=== PATIENT | female | born 1935 | race Two or more races ===

== ENCOUNTER 2024-08-19 03:47 | Inpatient (IN) | payer MEDICARE, OTHER ==
[~2024-08-19] VITALS: Ht 144.8 cm; Wt 52.6 kg
[2024-08-19] MEDS ORDERED: ACETAMINOPHEN ES 500 MG TABLET ONE (04:26)
[2024-08-19] MEDS: ACETAMINOPHEN ES 500 MG TABLET PO ONE (04:29)
[2024-08-19 04:47] LABS: BASOPHILS % (AUTO) 0.3 % (0.0-2.0); EOSINOPHILS # (AUTO) 0.1 K/uL (0.0-0.7); EOSINOPHILS % (AUTO) 0.6 % (0.0-6.0); HEMATOCRIT 34 % (33-45); HEMOGLOBIN 11.1 g/dL (11.5-14.8); LYMPHOCYTES % (AUTO) 7.6 % (20.0-44.0); MEAN CORPUSCULAR HEMOGLOBIN 27 PG (26.0-33.0); MEAN CORPUSCULAR HGB CONC 33 g/dl (31.0-36.0); MEAN CORPUSCULAR VOLUME 82 fL (82-100); MONOCYTES # (AUTO) 0.7 K/uL (0.1-1.30); MONOCYTES % (AUTO) 5.3 % (2.0-12.0); NEUTROPHILS # (AUTO) 11.5 K/uL (1.8-8.9); NEUTROPHILS % (AUTO) 86.2 % (43.0-81.0); PLATELET COUNT (AUTO) 198 K/uL (150-450); RED BLOOD CELL COUNT(AUTO) 4.12 MIL/uL (4.0-5.2); RED CELL DISTRIBUTION WIDTH 14.9 % (11.5-15.0); WHITE BLOOD COUNT (AUTO) 13.3 K/uL (4.3-11.0)
[2024-08-19 04:53] LABS: CALCIUM, SERUM 8.8 mg/dL (8.5-10.1); CREATININE 1.1 mg/dL (0.6-1.3); POTASSIUM 3.6 mmol/L (3.5-5.1)
[2024-08-19] MEDS ORDERED: oxyCODONE/APAP (5/325 MG) 1 UDTAB TABLET ONE (07:34)
[2024-08-19] MEDS: oxyCODONE/APAP (5/325 MG) 1 UDTAB TABLET PO ONE (07:41)
[2024-08-19] MEDS ORDERED: OMEP20CA15 PO (09:07)
[2024-08-19] MEDS ORDERED: NIFE-35 PO (09:07)
[2024-08-19] MEDS ORDERED: GLIM4TAB37 PO (09:07)
[2024-08-19] MEDS ORDERED: METO-357 PO (09:07)
[2024-08-19] MEDS ORDERED: BIMA2.5D5 EACHEYE (09:07)
[2024-08-19] MEDS ORDERED: METF-440 PO (09:07)
[2024-08-19] MEDS ORDERED: BRIM5DRO3 LEFTEYE (09:07)
[2024-08-19] MEDS ORDERED: BRIN10DR EACHEYE (09:07)
[2024-08-19] MEDS ORDERED: LORA-258 PO (09:07)
[2024-08-19] MEDS ORDERED: Z GUARD REMEDY 4 OZ OINT TP PRN (13:30)
[2024-08-19] MEDS ORDERED: MAG HYDROX/AL HYDROX/SIMETH 30 ML UDC PO PRN (13:30)
[2024-08-19] MEDS ORDERED: ONDANSETRON HCL/PF 4 MG/2 ML VIAL IVP PRN (13:30)
[2024-08-19] MEDS ORDERED: DEXTROSE 50%-WATER 50 ML DISP.SYRIN IV PRN (13:30)
[2024-08-19] MEDS ORDERED: ZOLPIDEM TARTRATE 5 MG TABLET PO PRN (13:30)
[2024-08-19] MEDS: HYDROCODONE/APAP 5/325MG TABLET PO PRN (13:57)
[2024-08-19] MEDS: ENOXAPARIN SODIUM 30 MG/0.3 ML DISP.SYRIN SQ SCH (14:39)
[2024-08-19 15:11] LABS: THYROID STIMULATING HORMONE 7.24 uIU/mL (0.358-3.74)
[2024-08-19] MEDS: INSULIN REGULAR, HUMAN 100 UNIT/ML 3 ML VIAL SQ PRN (18:10)
[2024-08-19] MEDS: BLOOD SUGAR DIAGNOSTIC 1 EACH STRIP IN SCH (18:11)
[2024-08-19 20:00] VITALS: BP 127/69; TEMP 98.8; O2SAT 96
[2024-08-19] MEDS: ACETAMINOPHEN 325 MG TABLET PO PRN (22:15)
[2024-08-20 07:16] LABS: BASOPHILS % (AUTO) 0.5 % (0.0-2.0); EOSINOPHILS % (AUTO) 0.8 % (0.0-6.0); HEMATOCRIT 28 % (33-45); HEMOGLOBIN 9.7 g/dL (11.5-14.8); LYMPHOCYTES # (AUTO) 0.9 K/uL (0.8-4.8); LYMPHOCYTES % (AUTO) 16.6 % (20.0-44.0); MEAN CORPUSCULAR HEMOGLOBIN 28 PG (26.0-33.0); MEAN CORPUSCULAR HGB CONC 34 g/dl (31.0-36.0); MEAN CORPUSCULAR VOLUME 82 fL (82-100); MONOCYTES # (AUTO) 0.5 K/uL (0.1-1.30); MONOCYTES % (AUTO) 8.8 % (2.0-12.0); NEUTROPHILS # (AUTO) 4.1 K/uL (1.8-8.9); NEUTROPHILS % (AUTO) 73.3 % (43.0-81.0); PLATELET COUNT (AUTO) 160 K/uL (150-450); RED BLOOD CELL COUNT(AUTO) 3.46 MIL/uL (4.0-5.2); RED CELL DISTRIBUTION WIDTH 15.1 % (11.5-15.0); WHITE BLOOD COUNT (AUTO) 5.6 K/uL (4.3-11.0)
[2024-08-20 07:33] LABS: CALCIUM, SERUM 8.1 mg/dL (8.5-10.1); CREATININE 0.9 mg/dL (0.6-1.3); MAGNESIUM 1.7 mg/dL (1.8-2.4); PHOSPHORUS 4.1 mg/dL (2.5-4.9); POTASSIUM 3.6 mmol/L (3.5-5.1)
[2024-08-20 08:00] VITALS: BP 131/67; TEMP 98.1; O2SAT 97
[2024-08-20] MEDS: PANTOPRAZOLE 40 MG TABLET.DR PO SCH (08:27)
[2024-08-20] MEDS: MAGNESIUM OXIDE 400 MG TABLET PO ONE (10:21)
[2024-08-20 16:00] VITALS: BP 145/73; TEMP 98.6; O2SAT 94
[2024-08-20 20:00] VITALS: BP 138/82; TEMP 97.9; O2SAT 95
[2024-08-21 00:52] VITALS: BP 138/82; TEMP 97.9; O2SAT 95
[2024-08-21 06:39] LABS: BASOPHILS % (AUTO) 0.7 % (0.0-2.0); EOSINOPHILS # (AUTO) 0.1 K/uL (0.0-0.7); EOSINOPHILS % (AUTO) 1.1 % (0.0-6.0); HEMATOCRIT 28 % (33-45); HEMOGLOBIN 9.6 g/dL (11.5-14.8); LYMPHOCYTES % (AUTO) 20.5 % (20.0-44.0); MEAN CORPUSCULAR HEMOGLOBIN 28 PG (26.0-33.0); MEAN CORPUSCULAR HGB CONC 34 g/dl (31.0-36.0); MEAN CORPUSCULAR VOLUME 81 fL (82-100); MONOCYTES # (AUTO) 0.6 K/uL (0.1-1.30); MONOCYTES % (AUTO) 11.3 % (2.0-12.0); NEUTROPHILS # (AUTO) 3.3 K/uL (1.8-8.9); NEUTROPHILS % (AUTO) 66.4 % (43.0-81.0); PLATELET COUNT (AUTO) 164 K/uL (150-450); RED BLOOD CELL COUNT(AUTO) 3.47 MIL/uL (4.0-5.2); RED CELL DISTRIBUTION WIDTH 14.7 % (11.5-15.0)
[2024-08-21 07:15] LABS: ALBUMIN 2.9 g/dL (3.4-5.0); BILIRUBIN,TOTAL 0.5 mg/dL (0.2-1.0); CALCIUM, SERUM 8.4 mg/dL (8.5-10.1); CREATININE 0.9 mg/dL (0.6-1.3); MAGNESIUM 1.9 mg/dL (1.8-2.4); PHOSPHORUS 3.7 mg/dL (2.5-4.9); POTASSIUM 3.5 mmol/L (3.5-5.1); TOTAL PROTEIN, SERUM 6.2 g/dL (6.4-8.2)
[2024-08-21 08:40] VITALS: BP 147/71; TEMP 98.1; O2SAT 96
[2024-08-21] MEDS: MAGNESIUM HYDROXIDE 30 ML UDC PO PRN (12:51)
[2024-08-21 16:00] VITALS: BP 139/66; TEMP 97.3; O2SAT 94
[2024-08-21 20:00] VITALS: BP 128/66; TEMP 98.2; O2SAT 96
[2024-08-21 21:00] VITALS: BP 128/75; TEMP 98; O2SAT 97
[2024-08-22 08:00] VITALS: BP 146/65; TEMP 98.8; O2SAT 96
[2024-08-22] MEDS: BISACODYL SUPP (10 MG) 10 MG/SUPP.RECT SUPP.RECT RC PRN (12:23)
== END 2024-08-22 15:20 | DRG 563 ==
LOC: ER 03:49 → MED 11:08
DX: S42.212A Unspecified displaced fracture of surgical neck of left humerus, initial encounter for closed fracture (principal); F03.90 Unspecified dementia, unspecified severity, without behavioral disturbance, psychotic disturbance, mood disturbance, and anxiety; I10 Essential (primary) hypertension; E11.9 Type 2 diabetes mellitus without complications; M81.0 Age-related osteoporosis without current pathological fracture; W10.8XXA Fall (on) (from) other stairs and steps, initial encounter; Y92.008 Other place in unspecified non-institutional (private) residence as the place of occurrence of the external cause; D72.829 Elevated white blood cell count, unspecified; D64.9 Anemia, unspecified; E03.9 Hypothyroidism, unspecified; R79.89 Other specified abnormal findings of blood chemistry
CPT/HCPCS: 36415; 70450-TC; 72125-TC; 73030-TC; 73200-TC; 73502; 80048-TC; 80053-TC; 80061-TC; 82962-TC; 83735-TC; 84100-TC; 84443-TC; 84484-TC; 85025-TC; 93307-TC; 97110-TC; 97116-TC; 97530-TC; 97535-TC; G0378; J1650; J1815

== ENCOUNTER 2024-12-04 22:34 | Emergency (ER) | payer MEDICARE, OTHER ==
[~2024-12-04] VITALS: Ht 157.5 cm; Wt 54.4 kg
[~2024-12-04 22:34] MED LIST: BIMA2.5D5 EACHEYE; BRIM5DRO3 LEFTEYE; BRIN10DR EACHEYE; GLIM4TAB37 PO; LORA-258 PO; METF-440 PO; METO-357 PO; NIFE-35 PO; OMEP20CA15 PO
[2024-12-04] MEDS ORDERED: TDAP [DIPH/PERTUSSIS/TET] 0.5 ML VIAL IM ONE (23:00)
[2024-12-04] MEDS: TDAP [DIPH/PERTUSSIS/TET] 0.5 ML VIAL IM ONE (23:00)
[2024-12-05 02:21] VITALS: BP 171/77; TEMP 97.3; O2SAT 96
== END 2024-12-05 02:21 | disposition home or self-care (01) ==
LOC: ER 22:35
DX: S00.83XA Contusion of other part of head, initial encounter (principal); Z79.84 Long term (current) use of oral hypoglycemic drugs; Z79.899 Other long term (current) drug therapy; W22.03XA Walked into furniture, initial encounter; Y93.89 Activity, other specified; Y92.89 Other specified places as the place of occurrence of the external cause; Y99.8 Other external cause status
CPT/HCPCS: 70450-TC; 70486-TC; 72125-TC; 90715